=== PATIENT | male | born 1970 | race Caucasian/White ===

== ENCOUNTER 2017-08-16 10:48 | Emergency (ER) | payer OTHER ==
--- NOTE | 2017-08-16 11:57 | ED ---
Psychiatric Complaint - HPI Summary HPI Summary: Pt here w/ depression, anxiety and insomnia since taking a new job at the start of the new year. 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 Has not been sleeping well since starting the job last week and last night was "so desparate to sleep" he drank "a bunch of ETOH and took 2 benadryl" - was able to sleep until 1:30am then woke up anxious and couldn't got back to sleep. Reports this was not a SI attempt. He and admit to h/o some mood d/o where he was taking citalopram and seeing a cousneling when living in [place]. [place] good with this combination of treatments however reports he had mood issues even while on med - she's not sure if ETOH interfered w/ effects or if he wasn't taking it routinely during those episodes. He moved here in 2012 and has been continuing the citalopram through PCP however has not addressed his MH issues w/ her (Dr. Garcia). Recently (a couple of months ago) requested weaning off med as he was feeling "stable" - he did so safely and is no longer taking any medications for MH. Takes lisinopril/HCTZ for BP only but admits he may not have been taking them this past week. She also reports he intentionally lost a lot of weight over the past few months by restricting food then ate alot over the holidays. He admits to binge drinking in the past - may have used this as a coping mechanism but admits he always felt worse the following day in re: to mood. Has not eaten today and has had reduced appetite, lack of care for ADL's. - History Of Current Complaint Chief Complaint: EDMentalHealth Time Seen by Provider: 08/16/17 10:56 Hx Obtained From: Patient, Family/[employer] - - Allergies/Home Medications Allergies/Adverse Reactions: Allergies Allergy/AdvReac Type Severity Reaction Status Date / Time Penicillins Allergy Unknown Verified 12/06/15 18:21 Reaction Details PMH/Surg Hx/FS Hx/Imm Hx Previously Healthy: Yes Endocrine/Hematology History: Denies: Hx Diabetes, Hx Thyroid Disease Cardiovascular History: Reports: Hx Hypertension Respiratory History: Denies: Hx Asthma, Hx Chronic Obstructive Pulmonary Disease (COPD) GI History: Denies: Hx Ulcer Infectious Disease History: No Infectious Disease History: Denies: Hx Clostridium Difficile, Hx Hepatitis, Hx Human Immunodeficiency Virus (HIV), Hx of Known/Suspected MRSA, Hx Shingles, Hx Tuberculosis, Hx Known/ Suspected VRE, Hx Known/Suspected VRSA, History Other Infectious Disease, Traveled Outside the [place] in Last 30 Days - Family History Known Family History: Positive: Hypertension, Diabetes - Social History Occupation: Employed Full-time Lives: With Family Alcohol Use: Weekly Alcohol Amount: not daily but frequently, sometimes binges Hx Substance Use: No Substance Use Type: Reports: None Hx Tobacco Use: No Smoking Status (MU): Never Smoked Tobacco Review of Systems Constitutional: Negative Positive: Fatigue. Negative: Fever, Chills Eyes: Negative ENT: Negative Cardiovascular: Negative Negative: Chest Pain Respiratory: Negative Negative: Shortness Of Breath Gastrointestinal: Negative, Other - reduced appetite at present Negative: Abdominal Pain, Vomiting, Diarrhea, Nausea Genitourinary: Negative Musculoskeletal: Negative Skin: Negative Neurological: Negative Psychological: Other - depressed, overwhelmed, anxious - no SI/HI at this time, reports "I was worse earlier" - does not elborate - when worse, refers to this state as "the rabbit hole" All Other Systems Reviewed And Are Negative: Yes Physical Exam Triage Information Reviewed: Yes Vital Signs On Initial Exam: Initial Vitals Temp Pulse Resp BP Pulse Ox 98.9 F 65 18 150/83 100 08/16/17 10:50 08/16/17 10:50 08/16/17 10:50 08/16/17 10:50 08/16/17 10:50 Vital Signs Reviewed: Yes Appearance: Positive: Well-Appearing, No Pain Distress, Well-Nourished Skin: Positive: Warm, Skin Color Reflects Adequate Perfusion, Dry Head/Face: Positive: Normal Head/Face Inspection Eyes: Positive: Normal, EOMI, PENG, Conjunctiva Clear ENT: Positive: Normal ENT inspection, Hearing grossly normal, Pharynx normal - mucosa moist Neck: Positive: Supple - no gross thyromegaly Respiratory/Lung Sounds: Positive: Clear to Auscultation, Breath Sounds Present Cardiovascular: Positive: Normal, RRR, S1, S2. Negative: Murmur, Rub, Leg Edema Left, Leg Edema Right Abdomen Description: Positive: Nontender, No Organomegaly, Soft Bowel Sounds: Positive: Present Musculoskeletal: Positive: Normal, Strength/ROM Intact Neurological: Positive: Normal, Sensory/Motor Intact, Alert, Oriented to Person Place, Time, CN Intact II-III Psychiatric: Positive: Other - lying on side in position on stretcher - low mood; cooperative and reports most of sx, tearful at times - supplements w/ hx; no alexandrea SI/HI but feels he's in and out of a "rabbit hole" - reports "I may be bipolar" as he has h/o sitting around for days on end when he gets into low moods Diagnostics - Vital Signs Vital Signs Temp Pulse Resp BP Pulse Ox 08/16/17 10:50 98.9 F 65 18 150/83 100 - Laboratory Result Diagrams: 08/16/17 12:09 08/16/17 12:09 Lab Statement: Any lab studies that have been ordered have been reviewed, and results considered in the medical decision making process. Course/Dx - Course Course Of Treatment: Pt presents w/ depressed mood and insomina w/ anxiety since starting new job. Stopped SSRI a couple of months ago as he was feeling "stable". Uses ETOH to cope at times, but not routinely. Has a PCP but has not discussed MH issues w/ her. Had a counselor when living in [place] which helped a great deal - has not been linked w/ MH services since moving to [place] in 2012. Suspect baseline depression/anxiety triggered by new job and lack of SSRI on board/lack of counseling. Needs to be linked w/ MH in community - may be meds through PCP and counseling or meds through psych depending on mental health evaluation today. MH aware and taken to [facility] for eval by psych. UPDATE: pt d/c'd - Differential Dx/Clinical Impression Provider Diagnosis: Mood disorder Discharge - Discharge Plan Condition: Stable Disposition: HOME Referrals: Mary Garcia MD [Primary Care Provider] -
[2017-08-16 12:27] LABS: ABS Basophils 0 10^3/ul (0-0.2); ABS Eosinophils 0.1 10^3/ul (0-0.6); ABS Lymphocytes 2.1 10^3/ul (1.0-4.8); ABS Monocytes 0.4 10^3/ul (0-0.8); ABS Neutrophils 4.1 10^3/ul (1.5-7.7); ABS Nucleated RBC 0 10^3/ul; Eosinophil % 1.4 % (0-6); Hematocrit 42 % (42-52); Hemoglobin 14.8 g/dl (14.0-18.0); Lymphocyte % 31.1 % (25-47); Mean Corpuscular HGB Conc 35 g/dl (31-36); Mean Corpuscular Hemoglobin 30 pg (27-31); Mean Corpuscular Volume 87 fL (80-94); Mean Platelet Volume 9 um3 (7.4-10.4); Nucleated Red Blood Cells % 0; Platelet Count 183 10^3/ul (150-450); Red Blood Count 4.87 10^6/ul (4.0-5.4); Red Cell Distribution Width 14 % (10.5-15); White Blood Count 6.8 10^3/ul (3.5-10.8)
[2017-08-16 12:32] LABS: Urine Appearance Clear; Urine Blood 2+ (Negative); Urine Color Yellow; Urine Ketones Negative (Negative); Urine Protein Negative (Negative); Urine Specific Gravity 1.012 (1.010-1.030); Urine Urobilinogen Negative (Negative)
[2017-08-16 12:42] LABS: EGFR Non-African American 83.3 (>60)
[2017-08-16 14:16] VITALS: BP 139/77
== END 2017-08-16 16:09 | disposition home or self-care (01) ==
LOC: ED 10:48
DX: F39 Unspecified mood [affective] disorder (principal); Z88.0 Allergy status to penicillin
CPT/HCPCS: 36415; 80053; 80307; 80320; 80329; 81003; 81015; 84443; 85025; 99284; G0480